=== PATIENT | female | born 1980 | race Asian ===

== ENCOUNTER 2022-09-04 17:26 | Outpatient (CLI) | payer OTHER, SELFPAY ==
--- NOTE | 2022-09-04 18:00 | CRLHL7_ITS ---
For Patients: As a result of the Century Cures Act, medical imaging exams and procedure reports are released immediately into your electronic medical record. You may view this report before your referring provider. If you have questions, please contact your health care provider. BILATERAL DIGITAL SCREENING MAMMOGRAM USING COMPUTER-AIDED DETECTION INDICATION: 42-year-old female. Baseline screening mammogram. TECHNIQUE: CC and MLO views were obtained. This study was evaluated with the assistance of computer-aided detection. COMPARISON: None. This is the patient`s baseline mammogram. FINDINGS: Breast Composition: There are areas of scattered fibroglandular density. Benign calcifications in the RIGHT breast. Within the central upper outer LEFT breast seen on the CC view is an area of asymmetry likely superimposed parenchymal elements. A repeat CC view with spot compression is recommended. A true ML view of the LEFT breast may be helpful as well. IMPRESSION: Asymmetry central upper outer LEFT breast for which additional imaging is recommended. BI-RADS Category 0: Incomplete: Need Additional Imaging Evaluation and/or Prior Mammograms for Comparison [facility] will contact the patient for follow-up. A lay language report of this examination will be provided to the patient. Dictated by: Raffaele Albrecht MD @09/05/2022 8:18:20 AM [email or web address]/Dictated by: Raffaele Albrecht MD @ 09/05/2022 8:18:00 AM (Electronically Signed)
== END 2022-09-04 17:27 | disposition home or self-care (01) ==
LOC: MAMMO 17:28
PROVIDERS: PCP Physician Assistant Medical; Visit Provider Physician Assistant Medical
DX: Z12.31 Encounter for screening mammogram for malignant neoplasm of breast (principal); N63.20 Unspecified lump in the left breast, unspecified quadrant
CPT/HCPCS: 77063; 77067

== ENCOUNTER 2022-09-07 09:05 | Outpatient (CLI) | payer OTHER, SELFPAY ==
--- NOTE | 2022-09-07 08:45 | CRLHL7_ITS ---
For Patients: As a result of the Cures Act, medical imaging exams and procedure reports are released immediately into your electronic medical record. You may view this report before your referring provider. If you have questions, please contact your health care provider. DIGITAL DIAGNOSTIC LEFT MAMMOGRAM USING TOMOSYNTHESIS AND COMPUTER-AIDED DETECTION INDICATION: Follow-up LEFT breast asymmetry identified on the baseline mammogram 09/04/2022. TECHNIQUE: Spot compression view of the LEFT breast in the CC projection, as well as a true ML view of the LEFT breast were performed. Tomosynthesis and CAD utilized. COMPARISON: Mammogram 09/04/2022. FINDINGS: Breast Composition: There are areas of scattered fibroglandular density. The previously suggested left breast asymmetry is superimposed breast tissue. No underlying mass. No architecture distortion. No suspicious microcalcifications. These findings were discussed in detail with the patient. Annual mammography is recommended. IMPRESSION: Negative left breast additional mammographic views. Annual mammography is recommended. BI-RADS Category 1: Negative A lay language report of this examination will be provided to the patient. Dictated by: Raffaele Albrecht MD @09/07/2022 10:49:40 AM j/Dictated by: Raffaele Albrecht MD @ 09/07/2022 10:49:00 AM (Electronically Signed)
== END 2022-09-07 09:06 | disposition home or self-care (01) ==
LOC: MAMMO 09:06
PROVIDERS: PCP Physician Assistant Medical; Visit Provider Physician Assistant Medical
DX: N63.20 Unspecified lump in the left breast, unspecified quadrant (principal); R92.8 Other abnormal and inconclusive findings on diagnostic imaging of breast
CPT/HCPCS: 77065; G0279

== ENCOUNTER 2023-08-26 08:00 | Outpatient (CLI) | payer OTHER, SELFPAY ==
[2023-08-26 15:26] LABS: Chlamydia DNA Amplified* NOT DETECTED (No Detected); GC DNA Amplified* NOT DETECTED (No Detected)
== END 2023-08-26 08:01 | disposition home or self-care (01) ==
PROVIDERS: PCP Physician Assistant Medical; Visit Provider Physician Assistant Medical
DX: E78.5 Hyperlipidemia, unspecified (principal); Z11.3 Encounter for screening for infections with a predominantly sexual mode of transmission
CPT/HCPCS: 80061; 87491; 87591

== ENCOUNTER 2024-11-09 13:19 | Outpatient (CLI) | payer OTHER, SELFPAY | END 2024-11-09 13:20 | disposition home or self-care (01) | PROVIDERS: PCP Physician Assistant Medical; Visit Provider Physician Assistant Medical | DX: E78.5 Hyperlipidemia, unspecified (principal); I10 Essential (primary) hypertension; N92.0 Excessive and frequent menstruation with regular cycle; R82.90 Unspecified abnormal findings in urine; Z11.4 Encounter for screening for human immunodeficiency virus [HIV]; Z11.59 Encounter for screening for other viral diseases | CPT/HCPCS: 80053; 80061; 84443; 86703; 86803; 87086 ==